=== PATIENT | male | born 1970 | race Two or more races ===

== ENCOUNTER 2019-06-03 17:14 | Emergency (ER) | payer MEDICAID ==
[~2019-06-03] VITALS: Ht 188 cm; Wt 59.0 kg
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
[2019-06-03] MEDS ORDERED: Ketorolac 30mg Inj IV ONE (17:30)
[2019-06-03 17:51] VITALS: BP 115/80
[2019-06-03 17:51] LABS: BASOPHILS % (AUTO) 1.9 % (0.0-2.0); EOSINOPHILS % (AUTO) 0.7 % (0.0-3.0); HEMATOCRIT 59.3 % (42.0-52.0); LYMPHOCYTES % (AUTO) 24.7 % (20.0-45.0); MEAN CORPUSCULAR VOLUME 98 FL (80-99); MONOCYTES % (AUTO) 7.9 % (1.0-10.0); NEUTROPHILS % (AUTO) 64.9 % (45.0-75.0); PLATELET COUNT 232 K/UL (150-450); RED BLOOD COUNT 6.05 M/UL (4.70-6.10); RED CELL DISTRIBUTION WIDTH 15.8 % (11.6-14.8); WHITE BLOOD COUNT 11.3 K/UL (4.8-10.8)
[2019-06-03 17:59] LABS: ANION GAP 7 mmol/L (5-15); BLOOD UREA NITROGEN 5 mg/dL (7-18); CALCIUM 9.8 MG/DL (8.5-10.1); CARBON DIOXIDE 36 MMOL/L (21-32); CHLORIDE 91 MMOL/L (98-107); CREATININE 0.9 MG/DL (0.55-1.30); POTASSIUM 3.3 MMOL/L (3.5-5.1); SODIUM 134 MMOL/L (136-145)
[2019-06-03 18:10] LABS: ALANINE AMINOTRANSFERASE 46 U/L (12-78); ALKALINE PHOSPHATASE 190 U/L (46-116); ASPARTATE AMINO TRANSFERASE 74 U/L (15-37); BILIRUBIN,TOTAL 2.8 MG/DL (0.2-1.0)
[2019-06-03 18:11] LABS: BILIRUBIN,DIRECT 0.8 MG/DL (0.0-0.3)
--- NOTE | 2019-06-03 19:05 | NUR ---
HAND-OFF: Report given to Radha CLARK.
[2019-06-03] MEDS ORDERED: LIDODERM700 M1 TOPIC (19:47)
[2019-06-03 20:05] VITALS: BP 115/80
--- NOTE | 2019-06-03 20:06 | NUR ---
ER DISCHARGE NOTE: Patient is cleared to be discharged per ERMD, pt is aox4, on room air, with stable vital signs. pt was given dc and prescription instructions, pt was able to verbalize understanding, pt id band and iv site removed without complications. pt is able to ambulate with steady gait. pt took all belongings.
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
--- NOTE | 2019-06-04 11:12 | Diagnostic Imaging Report ---
Indication: Dyspnea Comparison: None A single view chest radiograph was obtained. Findings: Cardiomediastinal appearance is within normal limits for age. The lungs are clear. Pulmonary vascularity is appropriate. The diaphragmatic contour is smooth and costophrenic angles are sharp. No pleural effusions are identified. The bones are unremarkable. Impression: No acute findings
== END 2019-06-03 20:07 | disposition home or self-care (01) ==
LOC: EMR 17:35
DX: R53.1 Weakness (principal); S20.212A Contusion of left front wall of thorax, initial encounter; I10 Essential (primary) hypertension; Y04.8XXA Assault by other bodily force, initial encounter; Y92.9 Unspecified place or not applicable
CPT/HCPCS: 36415; 71045; 80053; 82248; 83690; 85025; 96361; 96374; 96375; 99284; J1885; J7040